=== PATIENT | female | born 1955 | race Caucasian/White ===

== ENCOUNTER 2018-02-21 08:55 | Day surgery (SDC) | payer OTHER ==
[2018-02-21] MEDS ORDERED: PROPOFOL 20 ML (09:33)
[2018-02-21] MEDS ORDERED: MIDAZOLAM 1 MG/ML 2 ML INJ (09:34)
[2018-02-21] MEDS ORDERED: FENTAnyl 50 MCG/ML VIAL (09:34)
== END 2018-02-21 10:37 | disposition home or self-care (01) ==
LOC: GIL 08:55
DX: Z86.010 Personal history of colon polyps (principal); K64.8 Other hemorrhoids; E66.01 Morbid (severe) obesity due to excess calories; Z68.41 Body mass index [BMI] 40.0-44.9, adult
CPT/HCPCS: 45378

== ENCOUNTER 2019-01-23 11:15 | Day surgery (SDC) | payer OTHER ==
[~2019-01-23 11:15] MED LIST: LIDOCAINE 2% (SDV) 5 ML INJ; PROPOFOL 200 MG INJ
[2019-01-23] MEDS ORDERED: PROPOFOL 40 ML (13:10)
== END 2019-01-23 14:57 | disposition home or self-care (01) ==
LOC: GIL 11:15
DX: R10.10 Upper abdominal pain, unspecified (principal)
CPT/HCPCS: 43235